=== PATIENT | male | born 1990 | race Asian ===

== ENCOUNTER 2023-06-27 08:15 | Outpatient (RCR) | payer OTHER, SELFPAY ==
--- NOTE | 2023-06-06 09:32 | OT.OP.EVAL ---
Visit Care Team Role Provider Type Smiley Etienne DO Family Provider Non-Staff Primary Care Provider Specialty: Medical Address: [address] [place] [address], [id number] Email: Nita Cavazos MD Attending Provider Non-Staff Referring Provider Specialty: Medical Address: [address] [place] [address], [phone] Fax: Email: Occupational Therapy Initial Evaluation OT Outpatient Adult Evaluation Start: 06/06/23 08:54 Freq: Status: Active Protocol: Document 06/06/23 08:54 AMS (Rec: 06/06/23 09:32 AMS [id number]) General Information - Adult Visit Number EVAL; 0/12 visits Plan of Care Dates 06/06/23 - 07/04/23 Insurance Information Prime; EVAL ONLY; * Auth x 12 visits Visit Start Time 08:15 Visit Stop Time 08:45 Total Visit Minutes 30 Treatment Setting Outpatient Care Note Type Initial Evaluation Identification Confirmed Yes Identification Confirmed By Self Goals Group Home Goals 1. Eitan will be modified independent with home exercise program utilizing provided written and visual instructions from therapist as needed. 2. Eitan will present with increased ability to participate in meaningful activities in a variety of environments secondary to the followina. Eitan will indicate 2 or less out of 10 on Pain Assessment Grid relative to distal upper extremities. Assessment/Plan Treatment Assessment Eitan, 33 y.o. right hand dominant, was referred to outpatient OT secondary to finger pain x 2 yrs localizing to all PIP joints. PMH significant for back pain; blood pressure; depression; headaches; hearing problems; jaw pain. Eitan indicated on Health History form that it ' feels like hand arthritis, but PCM says it's not'. 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 (-) playing of instruments; (-) weight lifting at this time. Symptoms reportedly presented approximately 3 yrs ago without identifiable reason for onset bilaterally. He reported that ice/topical gel were not beneficial and that hot water did help some (vs hot packs). He reports pain/ discomfort all the time w/ noted stiffness/change in sensation in the mornings. Denied use of splints. Whole body Pain Assessment Grid completed; indication of 5 out of 10 on pain grid relative to volar/dorsal surfaces of MPJs -> tips of 2-5 digits bilaterally, and PIPJ -> tips of thumbs bilaterally. Goniometer measurements: 63 degrees active pain-free R wrist flex vs 67 degrees active pain-free L wrist flex; 62 degrees active pain-free R wrist ext vs 65 degrees pain- free active L wrist ext; 0-30 degrees bilateral pain-free wrist UD; 0-15 degrees active pain-free R wrist RD vs 0-18 degrees active pain-free L wrist RD. MMT results = 5/5 MMT for bilateral wrists in all directions. Dynamometer II strength testing results w/ elbows in 90 degrees flexion: 137.0# of force R driver medic ( compared to 30-34 y.o. males 121.8 +/- 22.4) vs 128.0# of force L driver medic (compared to 30- 34 y.o. males 110.4 +/- 21.7). Dynamometer II strength testing results w/ elbows in extension: 159.0# of force R driver medic vs 150.0# of force L driver medic . Pinchometer strength testing results were as follows: Lateral Pinch: 25.0# of force R lateral haas pinch (compared to 30-34 y.o. males 26.4 +/- 4.8) vs 27.5# of force L lateral haas pinch (compared to 30-34 y.o. males 26.2 +/- 5.1 ). Tip pinch: 17.0# of force R tip pinch (compared to 30-34 y.o. males 17.4 +/- 6.7) vs 17.5# of force L tip pinch ( compared to 30-34 y.o. males 17.6 +/- 4.8). 3-jaw pinch: 20.0# of force R 3-jaw pinch ( compared to 30-34 y.o. males 24.7 +/- 4.7) vs 19.0# of force L 3-jaw pinch (compared to 30-34 y.o. males 25.4 +/- 5 .7). (-) signs of intrinsic tightness and/or limited MP or PIP range of motion of digits 2-5 bilaterally w/ tendon gliding. Tolerated 2 min w/ reverse phalen's test with no observable changes in positioning of fingers/hands/ wrists; when asked, Eitan reported tingling in all fingers bilaterally. Outpatient OT is recommended to establish HEP. Home Exercise Program 06/06/23 = Instructed in passive wrist ROM in all directions w/ hold of 20 to 30 sec to be completed bilaterally daily, x 1 rep (or more as needed). Length of treatment (weeks) 4 Plan of Care Start Date 06/06/23 Plan of Care End Date 07/04/23 Treatment Frequency Once a Week Therapeutic Contents Active Range of Motion, Adaptive Equipment Education, Client Education,Functional Activities,Home Exercise Program,Joint Protection, Manual Therapy,Education,Self- Care,Modalities Modalities As Needed,As Prescribed Additional Types of Modalities Heat/Ice/Contrast Baths/ Paraffin/Ultrasound
--- NOTE | 2023-06-16 14:19 | OT.OP.TRT ---
Visit Care Team Role Provider Type Smiley Etienne DO Family Provider Non-Staff Primary Care Provider Specialty: Medical Address: [address] [place] [address], [id number] Email: Nita Cavazos MD Attending Provider Non-Staff Referring Provider Specialty: Medical Address: [address] [place] [address], [phone] Fax: Email: Occupational Therapy Treatment Note OT Outpatient Treatment Note - Adult Start: 06/06/23 08:54 Freq: Status: Active Protocol: Document 06/16/23 14:01 AMS (Rec: 06/16/23 14:18 AMS [id number]) OT Outpatient Adult Treatment Note Session Time Visit Start Time 13:00 Visit Stop Time 13:35 Visit Information Visit Number 05/27 visits Plan of Care Dates 06/06/23 - 07/04/23 Insurance Information Prime; EVAL ONLY; * Auth x 12 visits Setting Treatment Setting Outpatient Care Visit Type Note Type Treatment Note General Information General Information Eitan, 33 y.o. right hand dominant, was referred to outpatient OT secondary to finger pain x 2 yrs localizing to all PIP joints. PMH significant for back pain; blood pressure; depression; headaches; hearing problems; jaw pain. Eitan indicated on Health History form that it ' feels like hand arthritis, but PCM says it's not'. 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 - Subjective Identification Type Name Observations Report of illness previous week; still trying to get healthy. Pain/discomfort of dorsum right hand (medial 3rd/ 4th metacarpals indicated). - Objective Shelter Goals 1. Eitan will be modified independent with home exercise program utilizing provided written and visual instructions from therapist as needed. 2. Eitan will present with increased ability to participate in meaningful activities in a variety of environments secondary to the followina. Eitan will indicate 2 or less out of 10 on Pain Assessment Grid relative to distal upper extremities. - Exercises 1 Descriptor HEP. - Assessment Assessment of Improvement Report of x-rays being taken x 2 years ago; denial of presence of arthritis per Eitan. Tolerated passive hook fist and passive hook fist combined w/ MPJ hyperextension ; report of 'stretching' at site of dorsal medial 3rd/4th digits of the R hand and w/ repetitive hook fist, 'duck', TT, fist 5 or more trials. (-) nonverbal signs of pain/ discomfort w/ blue firm theraputty. No pain/discomfort w/ resisted finger ext w/ use of TB #3. Shooting pain/ discomfort at night impacting sleep; denies wrist flexion. Recommend reviewing HEP; discussed use of heat to help w/ mobility as needed. Home Exercise Program 06/16/23 = Provided with firm blue theraputty; instructed in finger/hand strengthening. Instructed in care and storage . Instructed in functional 'c' and avoiding positions of deformity (positioning putty between PIP <-> MPJ w/ finger extension) and avoiding extension at IPJ and MPJ of thumb. Instruced in passive hook fist, passive hook fist combined w/ MCPJ hyperextension, passive TT; rec hold of 20-30 sec x 1-2 repetitions. 06/06/23 = Instructed in passive wrist ROM in all directions w/ hold of 20 to 30 sec to be completed bilaterally daily, x 1 rep (or more as needed). - Plan Therapy Recommendations Advance per Rehabilitation Protocol
--- NOTE | 2023-06-20 09:21 | OT.OP.TRT ---
Visit Care Team Role Provider Type Smiley Etienne DO Family Provider Non-Staff Primary Care Provider Specialty: Medical Address: [address] [place] [address], [id number] Email: Nita Cavazos MD Attending Provider Non-Staff Referring Provider Specialty: Medical Address: [address] [place] [address], [phone] Fax: Email: Occupational Therapy Treatment Note OT Outpatient Treatment Note - Adult Start: 06/06/23 08:54 Freq: Status: Active Protocol: Document 06/20/23 09:12 AMS (Rec: 06/20/23 09:21 AMS [id number]) OT Outpatient Adult Treatment Note Session Time Visit Start Time 08:25 Visit Stop Time 08:50 Visit Information Visit Number 2/ visits Plan of Care Dates 06/06/23 - 07/04/23 Insurance Information Prime; EVAL ONLY; * Auth x 12 visits Setting Treatment Setting Outpatient Care Visit Type Note Type Treatment Note General Information General Information Eitan, 33 y.o. right hand dominant, was referred to outpatient OT secondary to finger pain x 2 yrs localizing to all PIP joints. PMH significant for back pain; blood pressure; depression; headaches; hearing problems; jaw pain. Eitan indicated on Health History form that it ' feels like hand arthritis, but PCM says it's not'. 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 - Subjective Identification Type Name Observations (+) report of use of blue, firm theraputty. Inclination to execute passive wrist ext w / forearm pronation and passive wrist flex w/ forearm supination vs tendon glides. Patient/Caregiver Compliance with Home Good Exercise Program - Objective Objective Measurements Please refer to below for progress towards meeting established OT goals: Greens Picker Goals 1. Eitan will be modified independent with home exercise program utilizing provided written and visual instructions from therapist as needed. 2. Eitan will present with increased ability to participate in meaningful activities in a variety of environments secondary to the followina. Eitan will indicate 2 or less out of 10 on Pain Assessment Grid relative to distal upper extremities. - Exercises 2 Descriptor Distal UE strengthening. 1 Descriptor HEP. Reviewed passive wrist stretches. No questions indicated in re: use of blue, firm theraputty. Given that the outpatient clinic does not have extra firm theraputty on site to provide to Eitan, recommended exploring [employer] for personal investment in extra firm theraputty given that current putty is a ' little too easy'. Also rec consideration of tobacco shaker strengthening rings (trialed 30, 40, 50# of force for tobacco shaker strengthening) and theraband flexbars (trialed yellow, red, blue*). Blue theraflexbar would be most appropriate for Eitan based on feedback on observations; instructed in wrist flex/ext w/ pron/sup (u, n), elbows flex vs ext and sustained hold. - Assessment Assessment of Improvement Report of use of blue, firm resistant theraputty; indicated inclination to carry -over passive wrist flex/ext vs passive wrist flex/ext and tendon glides. Given that the outpatient clinic does not have extra firm theraputty on site to provide to Eitan, recommended exploring [employer] for personal investment in extra firm theraputty given that current putty is a ' little too easy'. Also rec consideration of tobacco shaker strengthening rings (trialed 30, 40, 50# of force for tobacco shaker strengthening) and theraband flexbars (trialed yellow, red, blue*). Blue theraflexbar would be most appropriate for Eitan based on feedback on observations; instructed in wrist flex/ext w/ pron/sup (u, n), elbows flex vs ext and sustained hold. Denied exacerbation of symptoms in R hand w/ any of today's exercises. Rec reviewing home exercise program. Home Exercise Program 06/16/23 = Provided with firm blue theraputty; instructed in finger/hand strengthening. Instructed in care and storage . Instructed in functional 'c' and avoiding positions of deformity (positioning putty between PIP <-> MPJ w/ finger extension) and avoiding extension at IPJ and MPJ of thumb. Instruced in passive hook fist, passive hook fist combined w/ MCPJ hyperextension, passive TT; rec hold of 20-30 sec x 1-2 repetitions. 06/06/23 = Instructed in passive wrist ROM in all directions w/ hold of 20 to 30 sec to be completed bilaterally daily, x 1 rep (or more as needed). - Plan Therapy Recommendations Advance per Rehabilitation Protocol
--- NOTE | 2023-06-27 09:02 | OT.OP.DC ---
Visit Care Team Role Provider Type Smiley Etienne DO Family Provider Non-Staff Primary Care Provider Address: [address] [place] [address], [phone] Email: Nita Cavazos MD Attending Provider Non-Staff Referring Provider Address: [address] [place] [address], [phone] Fax: Email: OT Outpatient OT Outpatient Adult Evaluation Start: 06/06/23 08:54 Freq: Status: Active Protocol: Document 06/06/23 08:54 AMS (Rec: 06/06/23 09:32 AMS [id number]) General Information - Adult Visit Information Visit Number EVAL; 0/12 visits Plan of Care Dates 06/06/23 - 07/04/23 Insurance Information Prime; EVAL ONLY; * Auth x 12 visits Session Time Visit Start Time 08:15 Visit Stop Time 08:45 Total Visit Minutes 30 Setting Treatment Setting Outpatient Care Visit Type Note Type Initial Evaluation Identification Identification Confirmed Yes Identification Confirmed By Self Goals Nursing Home Goals Nursing Home Goals 1. Eitan will be modified independent with home exercise program utilizing provided written and visual instructions from therapist as needed. 2. Eitan will present with increased ability to participate in meaningful activities in a variety of environments secondary to the followina. Eitan will indicate 2 or less out of 10 on Pain Assessment Grid relative to distal upper extremities. Assessment/Plan Assessment Treatment Assessment Eitan, 33 y.o. right hand dominant, was referred to outpatient OT secondary to finger pain x 2 yrs localizing to all PIP joints. PMH significant for back pain; blood pressure; depression; headaches; hearing problems; jaw pain. Eitan indicated on Health History form that it ' feels like hand arthritis, but PCM says it's not'. 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 (-) playing of instruments; (-) weight lifting at this time. Symptoms reportedly presented approximately 3 yrs ago without identifiable reason for onset bilaterally. He reported that ice/topical gel were not beneficial and that hot water did help some (vs hot packs). He reports pain/ discomfort all the time w/ noted stiffness/change in sensation in the mornings. Denied use of splints. Whole body Pain Assessment Grid completed; indication of 5 out of 10 on pain grid relative to volar/dorsal surfaces of MPJs -> tips of 2-5 digits bilaterally, and PIPJ -> tips of thumbs bilaterally. Goniometer measurements: 63 degrees active pain-free R wrist flex vs 67 degrees active pain-free L wrist flex; 62 degrees active pain-free R wrist ext vs 65 degrees pain- free active L wrist ext; 0-30 degrees bilateral pain-free wrist UD; 0-15 degrees active pain-free R wrist RD vs 0-18 degrees active pain-free L wrist RD. MMT results = 5/5 MMT for bilateral wrists in all directions. Dynamometer II strength testing results w/ elbows in 90 degrees flexion: 137.0# of force R manager business systems ( compared to 30-34 y.o. males 121.8 +/- 22.4) vs 128.0# of force L manager business systems (compared to 30- 34 y.o. males 110.4 +/- 21.7). Dynamometer II strength testing results w/ elbows in extension: 159.0# of force R manager business systems vs 150.0# of force L manager business systems . Pinchometer strength testing results were as follows: Lateral Pinch: 25.0# of force R lateral haas pinch (compared to 30-34 y.o. males 26.4 +/- 4.8) vs 27.5# of force L lateral haas pinch (compared to 30-34 y.o. males 26.2 +/- 5.1 ). Tip pinch: 17.0# of force R tip pinch (compared to 30-34 y.o. males 17.4 +/- 6.7) vs 17.5# of force L tip pinch ( compared to 30-34 y.o. males 17.6 +/- 4.8). 3-jaw pinch: 20.0# of force R 3-jaw pinch ( compared to 30-34 y.o. males 24.7 +/- 4.7) vs 19.0# of force L 3-jaw pinch (compared to 30-34 y.o. males 25.4 +/- 5 .7). (-) signs of intrinsic tightness and/or limited MP or PIP range of motion of digits 2-5 bilaterally w/ tendon gliding. Tolerated 2 min w/ reverse phalen's test with no observable changes in positioning of fingers/hands/ wrists; when asked, Eitan reported tingling in all fingers bilaterally. Outpatient OT is recommended to establish HEP. Home Exercise Program 06/06/23 = Instructed in passive wrist ROM in all directions w/ hold of 20 to 30 sec to be completed bilaterally daily, x 1 rep (or more as needed). Plan Length of treatment (weeks) 4 Plan of Care Start Date 06/06/23 Plan of Care End Date 07/04/23 Treatment Frequency Once a Week Therapeutic Contents Active Range of Motion, Adaptive Equipment Education, Client Education,Functional Activities,Home Exercise Program,Joint Protection, Manual Therapy,Education,Self- Care,Modalities Modalities As Needed,As Prescribed Additional Types of Modalities Heat/Ice/Contrast Baths/ Paraffin/Ultrasound Functional Wrist/Hand Scan Hand Side Sensory Assessment Sensory Profile2 OT Outpatient Treatment Note - Adult Start: 06/06/23 08:54 Freq: Status: Active Protocol: Document 06/27/23 08:52 [facility] (Rec: 06/27/23 09:01 [facility] [id number]) OT Outpatient Adult Treatment Note Session Time Visit Start Time 08:15 Visit Stop Time 08:45 Visit Information Visit Number 3/12 visits Plan of Care Dates 06/06/23 - 07/04/23 Insurance Information Prime; EVAL ONLY; * Auth x 12 visits Setting Treatment Setting Outpatient Care Visit Type Note Type Treatment Note General Information General Information Eitan, 33 y.o. right hand dominant, was referred to outpatient OT secondary to finger pain x 2 yrs localizing to all PIP joints. PMH significant for back pain; blood pressure; depression; headaches; hearing problems; jaw pain. Eitan indicated on Health History form that it ' feels like hand arthritis, but PCM says it's not'. 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 - Subjective Identification Type Name Observations Report of leaving theraputty at work on previous Tuesday; thus, did not use putty over the past week/weekend while completing leadership training . Patient/Caregiver Compliance with Home Good Exercise Program - Objective Objective Measurements Please refer to below for progress towards meeting established OT goals: Nursing Home Goals GOALS MET Mod independent with home exercise program utilizing provided written and visual instructions from therapist as needed. *MET 06/27/23 GOALS D/C Eitan will present with increased ability to participate in meaningful activities in a variety of environments secondary to the following: Eitan will indicate 2 or less out of 10 on Pain Assessment Grid relative to distal upper extremities. d/c 06/27/23 = did not have Eitan complete - Exercises 2 Descriptor Distal UE strengthening. Blue flex bar. Wrist flex/ext horizontal orientation of flex bar. 3 x 10. Blue flex bar. Forearm supination. 3 x 10. Blue flex bar. Forearm pronation. 3 x 10. Blue flex bar. Forearm supination w/ wrist flex/ext. 1 x 10. 1 Descriptor HEP. Reviewed passive wrist stretches (passive wrist flex, ext, RD, UD). Reviewed tendon glides; x 5 each tendon glide position. No questions indicated in re: use of blue, firm theraputty. Rec exploring [employer] for personal investment in extra firm theraputty, consideration of manager business systems strengthening rings ( trialed 30, 40, 50# of force for manager business systems strengthening) and theraband flexbars (trialed yellow, red, blue*). - Assessment Assessment of Improvement Eitan is independent w/ home exercise program and denied any questions. Rec d/c from outpatient OT at this time. Discussed returning to PCP if symptoms persist and requesting referral to UE donor services specialist for further diagnostic imaging/ examination and exploration of less conservative measures of treatment. Home Exercise Program 06/16/23 = Provided with firm blue theraputty; instructed in finger/hand strengthening. Instructed in care and storage . Instructed in functional 'c' and avoiding positions of deformity (positioning putty between PIP <-> MPJ w/ finger extension) and avoiding extension at IPJ and MPJ of thumb. Instruced in passive hook fist, passive hook fist combined w/ MCPJ hyperextension, passive TT; rec hold of 20-30 sec x 1-2 repetitions. 06/06/23 = Instructed in passive wrist ROM in all directions w/ hold of 20 to 30 sec to be completed bilaterally daily, x 1 rep (or more as needed). - Plan Therapy Recommendations Discharge from Occupational Therapy
== END 2023-06-28 14:52 | disposition home or self-care (01) ==
LOC: OT 08:15
DX: M79.646 Pain in unspecified finger(s) (principal)
CPT/HCPCS: 97110; 97165; 97530